=== PATIENT | female | born 1965 | race Two or more races ===

== ENCOUNTER 2017-06-22 08:05 | Outpatient (CLI) | payer OTHER | END 2017-06-22 08:15 | disposition home or self-care (01) | LOC: MAMO-SONO 08:05 | DX: Z12.31 Encounter for screening mammogram for malignant neoplasm of breast (principal); Z87.898 Personal history of other specified conditions; N60.11 Diffuse cystic mastopathy of right breast ==

== ENCOUNTER 2017-06-22 10:17 | Outpatient (CLI) | payer OTHER | END 2017-06-22 11:00 | disposition home or self-care (01) | LOC: NUCLEAR 10:17 | DX: M85.88 Other specified disorders of bone density and structure, other site (principal) ==

== ENCOUNTER 2018-05-21 10:40 | Outpatient (CLI) | payer OTHER | END 2018-05-21 10:45 | disposition home or self-care (01) | LOC: SONOGRAMA 10:40 | DX: E04.1 Nontoxic single thyroid nodule (principal) ==

== ENCOUNTER 2018-06-27 07:12 | Outpatient (CLI) | payer OTHER | END 2018-06-27 07:14 | disposition home or self-care (01) | LOC: SONOGRAMA 07:12 | DX: E04.1 Nontoxic single thyroid nodule (principal) ==

== ENCOUNTER 2018-09-14 13:29 | Outpatient (CLI) | payer OTHER | END 2018-09-14 13:48 | disposition home or self-care (01) | LOC: MRI 13:29 | DX: M51.36 Other intervertebral disc degeneration, lumbar region (principal) | CPT/HCPCS: 72148 ==

== ENCOUNTER → 2020-08-29 | Outpatient (CLI) | payer OTHER | END | disposition home or self-care (01) | LOC: MAMO-SONO 12:42 | DX: N60.01 Solitary cyst of right breast (principal); N60.02 Solitary cyst of left breast; E04.2 Nontoxic multinodular goiter; Z12.31 Encounter for screening mammogram for malignant neoplasm of breast ==

== ENCOUNTER 2021-10-28 13:07 | Outpatient (CLI) | payer OTHER | END 2021-10-28 14:16 | disposition home or self-care (01) | LOC: MAMO-SONO 13:07 | DX: Z12.31 Encounter for screening mammogram for malignant neoplasm of breast (principal); R10.84 Generalized abdominal pain; R10.2 Pelvic and perineal pain ==

== ENCOUNTER 2021-10-28 13:07 | Outpatient (CLI) | payer OTHER | END 2021-10-28 13:09 | disposition home or self-care (01) | LOC: NUCLEAR 13:07 | DX: M81.0 Age-related osteoporosis without current pathological fracture (principal) ==

== ENCOUNTER 2023-03-22 08:33 | Outpatient (CLI) | payer OTHER | END 2023-03-22 08:45 | disposition home or self-care (01) | LOC: MAMO-SONO 08:33 | DX: R10.2 Pelvic and perineal pain (principal); Z12.31 Encounter for screening mammogram for malignant neoplasm of breast; N64.2 Atrophy of breast ==

== ENCOUNTER → 2023-09-16 | Day surgery (SDC) | payer OTHER ==
[2023-09-10 10:33] LABS: PH,URINE 5.5 (5.0-8.0); URINE APPEARANCE Cloudy; URINE BILIRRUBIN Negative (NEGATIVE); URINE BLOOD Negative; URINE COLOR Dark Yellow; URINE GLUCOSE Negative (NEGATIVE); URINE LEUKOCYTE Trace; URINE NITRATE Negative; URINE PROTEIN Trace (NEGATIVE)
[2023-09-10 10:38] LABS: URINE BACTERIA 8892.8 uL (0.0-1933); URINE EPITHELIAL CELLS > 201.7 uL (0.0-38.8); URINE RBC 5.1 uL (0.0-20.8); URINE WBC 80.6 uL (0.0-23.2)
[2023-09-10 10:44] LABS: HEMATOCRIT 40.2 % (36.0-45.00); HEMOGLOBIN 13.7 g/dL (12.0-15.00); MEAN CELL VOLUME 87.2 fL (80.00-100.00); MEAN CORPUSCULAR HEMOGLOBIN 29.7 pg (27.00-32.0); MEAN CORPUSCULAR HGB CONC 34.1 g/dl (32.0-36.0); PLATELET COUNT 229 K/uL (150-450); RED BLOOD COUNT 4.61 M/uL (4.00-6.00); RED CELL DISTRIBUTION WIDTH 13.6 % (11.5-14.5)
[2023-09-10 10:47] LABS: URINE MUCUS MODERATE; URINE YEAST FEW /hpf
[2023-09-10 10:50] LABS: INR 1.04; PARTIAL THROMBOPLASTIN TIME 30.2 SECONDS (22.0-34.0); PROTHROMBIN TIME 10.9 SECONDS (9.0-11.5)
[2023-09-10 11:30] LABS: ALBUMIN 4.1 gm/dL (3.4-5.0); BILIRUBIN TOTAL 1.08 mg/dL (0.3-1.2); CREATININE SERUM 1.03 mg/dL (0.55-1.02); GFR 55.63; GLOBULINA 3.2 G/DL (2.4-3.5); POTASSIUM 4.2 mEq/L (3.5-5.1); TOTAL PROTEIN 7.3 gm/dL (6.4-8.2); TSH 0.844 uIU/mL (0.358-3.74)
[~2023-09-16] VITALS: Ht 167.6 cm; Wt 69.9 kg
[~2023-09-16] MED LIST: CEFOXITIN SODIUM 2,000 MG VIAL IV SCH; MORGIDOX100 MG PO; MORPHINE SULFATE 4 MG/ML VIAL IV PRN; POVIDONE-IODINE 118 ML BOTT TOP ONE; PROMETHAZINE HCL 50 MG/ML AMPUL IM ONE; Tylenol #3 PO
== END | disposition home or self-care (01) ==
LOC: ADM 09-10 08:15 → CIR.AMB 08:15
PROVIDERS: ATTEND Obstetrics & Gynecology
DX: N84.0 Polyp of corpus uteri (principal); D25.0 Submucous leiomyoma of uterus; N95.0 Postmenopausal bleeding; Z88.6 Allergy status to analgesic agent

== ENCOUNTER 2023-09-22 14:13 | Outpatient (CLI) | payer OTHER ==
[~2023-09-22 14:13] MED LIST changes: -CEFOXITIN SODIUM 2,000 MG VIAL IV SCH; -MORPHINE SULFATE 4 MG/ML VIAL IV PRN; -POVIDONE-IODINE 118 ML BOTT TOP ONE; -PROMETHAZINE HCL 50 MG/ML AMPUL IM ONE
== END 2023-09-23 08:33 | disposition home or self-care (01) ==
LOC: SONOGRAMA 14:13
DX: R94.4 Abnormal results of kidney function studies (principal)

== ENCOUNTER 2023-09-22 14:33 | Outpatient (CLI) | payer OTHER ==
[2023-09-22 15:43] LABS: PH,URINE 5.5 (5.0-8.0); URINE APPEARANCE Clear; URINE BILIRRUBIN Negative (NEGATIVE); URINE BLOOD Small; URINE COLOR Yellow; URINE GLUCOSE Negative (NEGATIVE); URINE LEUKOCYTE Negative; URINE NITRATE Negative; URINE PROTEIN Negative (NEGATIVE); URINE UROBILINOGEN 0.2 E.U./dl
[2023-09-22 15:48] LABS: URINE BACTERIA 15.1 uL (0.0-1933); URINE EPITHELIAL CELLS 15.1 uL (0.0-38.8); URINE RBC 90.9 uL (0.0-20.8); URINE WBC 6.4 uL (0.0-23.2)
[2023-09-22 16:04] LABS: ALBUMIN 4.1 gm/dL (3.4-5.0); BILIRUBIN TOTAL 1.3 mg/dL (0.3-1.2); CALCIUM 9.1 mg/dL (8.5-10.1); CREATININE SERUM 0.97 mg/dL (0.55-1.02); GFR 59.4; GLOBULINA 3.1 G/DL (2.4-3.5); POTASSIUM 3.98 mEq/L (3.5-5.1); TOTAL PROTEIN 7.2 gm/dL (6.4-8.2)
== END 2023-09-22 14:39 | disposition home or self-care (01) ==
LOC: LAB 14:33
DX: N39.0 Urinary tract infection, site not specified (principal); R94.4 Abnormal results of kidney function studies

== ENCOUNTER 2024-09-19 08:15 | Outpatient (CLI) | payer OTHER | END 2024-09-19 08:18 | disposition home or self-care (01) | LOC: SONOGRAMA 08:15 → MAMO-SONO 08:15 → SONOGRAMA 08:18 → MAMO-SONO 08:18 | DX: N93.9 Abnormal uterine and vaginal bleeding, unspecified (principal); N84.0 Polyp of corpus uteri; N63.0 Unspecified lump in unspecified breast; Z12.31 Encounter for screening mammogram for malignant neoplasm of breast ==

== ENCOUNTER 2024-09-19 09:43 | Outpatient (CLI) | payer OTHER | END 2024-09-19 09:44 | disposition home or self-care (01) | LOC: NUCLEAR 09:43 | DX: M81.0 Age-related osteoporosis without current pathological fracture (principal) ==

== ENCOUNTER 2025-02-16 08:25 | Outpatient (CLI) | payer OTHER | END 2025-02-16 08:51 | disposition home or self-care (01) | LOC: SONOGRAMA 08:25 | DX: E04.9 Nontoxic goiter, unspecified (principal); R10.9 Unspecified abdominal pain ==

== ENCOUNTER 2025-02-16 09:02 | Outpatient (CLI) | payer OTHER ==
[2025-02-16 09:53] LABS: BASO % 0.9 % (0.1-1.2); EOS # 0.10 (0.04-0.54); EOS % 1.8 % (0.7-7.0); LYMPH # 1.37 (1.18-3.74); LYMPH % 24.1 % (19.3-53.1); MEAN PLATELET VOLUME 10.00 fl (9.4-12.4); MONO # 0.32 (0.24-0.82); MONO % 5.6 % (4.7-12.5); NEUT # 3.83 (1.56-6.13); NEUT % 67.2 % (34.0-71.1); RED CELL DISTRIBUTION WIDTH 13.1 % (11.6-14.4)
[2025-02-16 09:54] LABS: ERYTHROCYTE SEDIMENTATION RATE 4 mm/hr (0-30)
[2025-02-16 10:24] LABS: ALT/SGPT 37 U/L (12-78); AST/SGOT 20 U/L (15-37); BILIRUBIN TOTAL 0.91 mg/dL (0.3-1.2); BUN CREA RATIO 19 (7.0-25.0); CREATININE SERUM 1.09 mg/dL (0.55-1.02); GFR 51.74; GLOBULINA 3.4 G/DL (2.4-3.5); GLUCOSE FASTING 88 mg/dL (65-100); OSMOLALITY SERUM 280 MOSM/KG (275-295); PHOSPHOKINASE CREATININE 66 U/L (26-192)
== END 2025-02-16 09:12 | disposition home or self-care (01) ==
LOC: LAB 09:02
DX: M77.9 Enthesopathy, unspecified (principal); M79.10 Myalgia, unspecified site